=== PATIENT | male | born 1995 | race Two or more races ===

== ENCOUNTER 2018-12-25 12:51 | Emergency (ER) | payer OTHER ==
[~2018-12-25] VITALS: Ht 195.6 cm; Wt 93.0 kg
[2018-12-25 13:00] VITALS: BP 128/80
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
[2018-12-25] MEDS ORDERED: XARELTO10 MG ORAL (13:02)
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
[2018-12-25 13:56] LABS: APPEARANCE,URINE CLEAR; BILIRUBIN, URINE NEGATIVE (NEGATIVE); COLOR,URINE PALE YELLOW; GLUCOSE, URINE (UA) NEGATIVE (NEGATIVE); KETONES,URINE NEGATIVE (NEGATIVE); LEUKOCYTE ESTERASE ,URINE NEGATIVE (NEGATIVE); NITRITE,URINE NEGATIVE (NEGATIVE); PH,URINE 6 (4.5-8.0); PROTEIN,URINE NEGATIVE (NEGATIVE); UROBILINOGEN,URINE NORMAL MG/DL (0.0-1.0)
--- NOTE | 2018-12-25 14:02 | Diagnostic Imaging Report ---
Indication: Back pain Comparison: None Findings: 3 views of the lumbar spine were obtained. No acute fracture or malalignment is identified. Vertebral body heights and disk spaces are well maintained. Posterior elements are unremarkable. Impression: No acute findings.
[2018-12-25] MEDS ORDERED: VOLTAREN100 G1 TP (14:21)
[2018-12-25] MEDS ORDERED: TYLENOL EXTRA500 MG ORAL (14:21)
[2018-12-25 14:25] VITALS: BP 128/80
--- NOTE | 2018-12-25 14:26 | NUR ---
ER DISCHARGE NOTE: Patient is cleared to be discharged per ERMD, pt is aox4, on room air, with stable vital signs. pt was given dc and prescription instructions, pt was able to verbalize understanding, pt id band removed without complications. pt is able to ambulate with steady gait. pt took all belongings.
== END 2018-12-25 14:26 | disposition home or self-care (01) ==
LOC: EMR 13:21
DX: S39.012A Strain of muscle, fascia and tendon of lower back, initial encounter (principal); V43.52XA Car driver injured in collision with other type car in traffic accident, initial encounter; Y92.414 Local residential or business street as the place of occurrence of the external cause
CPT/HCPCS: 72020; 81001; 99283